=== PATIENT | male | born 1960 | race Caucasian/White ===

== ENCOUNTER 2019-07-23 15:05 | Emergency (ER) | payer MEDICAID ==
[~2019-07-23] VITALS: Ht 177.8 cm; Wt 65.0 kg
[2019-07-23] MEDS ORDERED: TRAMADOL 50MG TABLET PO ONE (16:15)
[2019-07-23] MEDS ORDERED: KETOROLAC 60MG/2ML VIAL IM ONE (16:15)
[2019-07-23] MEDS ORDERED: DEXAMETHASONE 10 MG/ML VIAL IM ONE (16:15)
[2019-07-23 16:51] VITALS: BP 127/79
== END 2019-07-23 16:52 | disposition home or self-care (01) ==
LOC: ER 15:05
DX: M54.30 Sciatica, unspecified side (principal)
CPT/HCPCS: 96372; 99283; J1100; J1885

== ENCOUNTER 2020-08-31 19:47 | Emergency (ER) | payer MEDICAID ==
[~2020-08-31] VITALS: Ht 172.7 cm; Wt 95.7 kg
[2020-08-31 21:02] VITALS: BP 121/74
== END 2020-08-31 21:23 | disposition home or self-care (01) ==
LOC: ER 19:47
DX: L03.317 Cellulitis of buttock (principal)
CPT/HCPCS: 99283

== ENCOUNTER 2022-02-27 22:07 | Emergency (ER) | payer MEDICAID ==
[~2022-02-27] VITALS: Ht 175.3 cm; Wt 95.1 kg
[2022-02-27 22:36] LABS: CLARITY URINE CLEAR (CLEAR); COLOR URINE YELLOW (YELLOW); KETONES URINE NEGATIVE (NEGATIVE); LEUKOCYTE ESTERASE URINE 3+ (NEGATIVE); NITRITE URINE NEGATIVE (NEGATIVE); OCCULT BLOOD URINE 1+ (NEGATIVE); PH URINE 7.5 (4.5-8.0); PROTEIN URINE NEGATIVE (NEGATIVE); UROBILINOGEN URINE 0.2 E.U./dL (0.2-1.0)
[2022-02-27] MEDS ORDERED: IBUPROFEN 600MG TABLET PO ONE (23:00)
[2022-02-27] MEDS ORDERED: CEFTRIAXONE SODIUM 1 G/VIAL IM ONE (23:00)
[2022-02-28] MEDS ORDERED: DOXY150T5 MT ×2 (02:59→16:10)
[2022-02-28 03:17] VITALS: BP 115/66
== END 2022-02-28 03:17 | disposition home or self-care (01) ==
LOC: ER 22:07
DX: N39.0 Urinary tract infection, site not specified (principal); N43.3 Hydrocele, unspecified; N43.40 Spermatocele of epididymis, unspecified; E11.9 Type 2 diabetes mellitus without complications
CPT/HCPCS: 76870; 81003; 87077; 87086; 87186; 93976; 96372; 99284; J0696